=== PATIENT | male | born 1985 | race Asian ===

== ENCOUNTER 2018-01-04 11:41 | Emergency (ER) | payer OTHER ==
[~2018-01-04] VITALS: Ht 170.2 cm; Wt 70.3 kg
[2018-01-04 11:46] VITALS: Ht 170.2 cm; Wt 70.3 kg
[2018-01-04 14:28] VITALS: BP 120/66
== END 2018-01-04 14:28 | disposition home or self-care (01) ==
LOC: ED 11:41
DX: S63.251A Unspecified dislocation of left index finger, initial encounter (principal); S01.81XA Laceration without foreign body of other part of head, initial encounter; V98.8XXA Other specified transport accidents, initial encounter; Y93.55 Activity, bike riding; Y92.413 State road as the place of occurrence of the external cause; Y99.8 Other external cause status
CPT/HCPCS: 90714; J2001